=== PATIENT | male | born 1995 | race African-American/Black ===

== ENCOUNTER 2016-06-13 08:20 | Emergency (ER) | payer SELFPAY ==
[~2016-06-13] VITALS: Ht 172.7 cm; Wt 63.6 kg
[2016-06-13 10:06] LABS: HEMATOCRIT 38.4 % (38.0-50.0); MCHC 32.3 G/DL (30.0-36.0); MCV 83.7 FL (86-99); PLATELET COUNT 249 K/uL (156-360); RBC DIS.WIDTH-CV 13.6 % (11.8-14.6); RBC DIS.WIDTH-SD 41.8 % (39-53); RED BLOOD COUNT 4.59 M/uL (4.00-5.50); WHITE BLOOD COUNT 2.9 K/uL (4.1-10.2)
[2016-06-13] MEDS ORDERED: ULTRAM50 MG PO (10:24)
[2016-06-13 10:37] LABS: CHLORIDE 110 mEq/L (99-109); POTASSIUM 3.9 mEq/L (3.7-5.4); SODIUM 141 mEq/L (136-147)
[2016-06-13 10:38] LABS: GLUCOSE 155 mg/dL (70-99)
[2016-06-13 10:40] LABS: ANION GAP 9 MEQ/L (2-14)
[2016-06-13 10:42] LABS: GFR ESTIMATE (CALCULATED) > 59 mL/min/
[2016-06-13 10:43] LABS: UREA NITROGEN (BUN) 16 mg/dL (9-23)
[2016-06-13 11:03] VITALS: BP 118/77
== END 2016-06-13 11:04 | disposition home or self-care (01) ==
LOC: EME 08:20
PROVIDERS: Nurse Practitioner Family
DX: S01.81XA Laceration without foreign body of other part of head, initial encounter (principal); W25.XXXA Contact with sharp glass, initial encounter; W20.8XXA Other cause of strike by thrown, projected or falling object, initial encounter; Z23 Encounter for immunization
CPT/HCPCS: 80048; 85027; 86900; 86901; 99281; 99285; J1885; J2405; J3010; J7030

== ENCOUNTER 2016-06-26 12:41 | Emergency (ER) | payer SELFPAY ==
[~2016-06-26] VITALS: Ht 175.3 cm; Wt 59.4 kg
[~2016-06-26 12:41] MED LIST: ULTRAM50 MG PO
[2016-06-26 14:15] VITALS: BP 128/64
== END 2016-06-26 14:15 | disposition home or self-care (01) ==
LOC: EME 12:41
DX: S01.81XD Laceration without foreign body of other part of head, subsequent encounter (principal)
CPT/HCPCS: 99281; 99283

== ENCOUNTER 2016-07-31 21:13 | Emergency (ER) | payer SELFPAY ==
[~2016-07-31] VITALS: Ht 170.2 cm; Wt 58.8 kg
[2016-07-31] MEDS ORDERED: BENADRYL50 MG PO (22:56)
[2016-07-31] MEDS ORDERED: OCUFLOX 0.100 DROP/5 BOTH EYES (22:56)
[2016-07-31 23:33] VITALS: BP 134/74
== END 2016-07-31 23:35 | disposition home or self-care (01) ==
LOC: EME 21:13 → RME 21:13
DX: B30.9 Viral conjunctivitis, unspecified (principal)
CPT/HCPCS: 99281; 99283